=== PATIENT | female | born 1995 | race Caucasian/White ===

== ENCOUNTER → 2021-05-02 | Outpatient (CLI) | payer OTHER ==
[2021-05-02 23:03] LABS: HCT 33.9 % (37.2-46.3); HGB 10.1 g/dL (12.0-15.0); MCH 23.6 pg (27.0-32.0); MCHC 29.8 g/dL (32.0-37.0); MCV 79.2 fL (80.0-97.0); Mean Platelet Volume 10.5 fL (9.5-12.2); NRBC Per 100 WBC 0 /100 WBCS (0.0-0.0); Platelet Count 257 X 10*3/uL (140-440); RBC 4.28 X 10*6/uL (4.10-5.20); RDW 14.7 % (11.5-14.5); WBC 4.99 X 10*3/uL (4.50-10.00)
[2021-05-02 23:48] LABS: African American GFR (CKD) 143.2 (60.0-200.0); Albumin 4.6 g/dL (3.8-4.9); Albumin/Globulin Ratio 1.79 (1.60-3.17); Anion Gap 12.5 mmol/L (10.00-18.00); BUN/Creat Ratio 12.15 Ratio (12.00-20.00); Calcium 9.3 mg/dL (8.7-10.3); Carbon Dioxide 20.9 mmol/L (20.0-27.5); Globulin 2.6 g/dL (1.6-3.3); Non-African American GFR(CKD) 123.5 (60.0-200.0); Potassium 3.9 mmol/L (3.5-5.5); Total Bilirubin 0.4 mg/dL (0.30-1.20); Total Protein 7.2 g/dL (6.2-8.2)
== END | disposition home or self-care (01) ==
LOC: LABWHC1 16:24
PROVIDERS: ATTEND Physician Assistant
DX: L50.9 Urticaria, unspecified (principal); L27.2 Dermatitis due to ingested food
CPT/HCPCS: 36415; 80053; 84443; 85027; 86003; 86038